=== PATIENT | female | born 1980 | race American Indian/Alaskan Native ===

== ENCOUNTER 2020-07-18 15:50 | Emergency (ER) | payer SELFPAY ==
--- NOTE | 2020-07-18 16:29 | XRay Report ---
RIGHT ANKLE 3 VIEWS INDICATION: Right ankle pain. COMPARISON: None. IMPRESSION: No acute osseous or soft tissue abnormality. Minimal osteoarthritic changes are noted at the ankle joint. A small plantar spur is identified. Signer Name: Juma Camacho Jr, MD Signed: 07/18/2020 4:24 PM Workstation Name: [id number]
--- NOTE | 2020-07-18 18:55 | Emergency Department Report ---
ED Extremity Problem HPI - General Chief complaint: Extremity Injury, Lower Stated complaint: RT ANKLE/CANT WALK Time Seen by Provider: 07/18/20 18:45 Source: patient Mode of arrival: Ambulatory Limitations: No Limitations - History of Present Illness Initial comments: Patient is a 39-year-old female presents emergency room complaints of right ankle and right foot pain that began yesterday. She states that she has previously had this on the left side. 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 She is ambulatory with discomfort. She denies any fall or injury. She denies any numbness or weakness. No allergies to medications. Patient has a history of hypertension. She states that she has been out of her lisinopril hydrochlorothiazide. She also takes metoprolol and amlodipine. She states that her blood pressure is chronically very elevated and she is not seeing a primary care doctor for it. She states that she does go to the ER for medications. She is not have any symptoms related to elevated blood pressure, no headache, no vision changes, no numbness, no weakness, no chest pain, no shortness of breath. - Related Data Previous Rx's Medication Instructions Recorded Last Taken Type Lisinopril/Hydrochlorothiazide 1 tab PO QDAY #30 tab 07/18/20 Unknown Rx [Zestoretic 20-25 mg] Metoprolol [Lopressor TAB] 25 mg PO BID #60 tablet 07/18/20 Unknown Rx Naproxen [EC-Naproxen] 500 mg PO BID PRN #14 tablet. 07/18/20 Unknown Rx amLODIPine 10 mg PO DAILY #30 tab 07/18/20 Unknown Rx Allergies Allergy/AdvReac Type Severity Reaction Status Date / Time No Known Allergies Allergy Unverified 07/18/20 15:59 ED Review of Systems ROS: Stated complaint: RT ANKLE/CANT WALK Other details as noted in HPI Comment: All other systems reviewed and negative ED Past Medical Hx - Past Medical History Previous Medical History?: Yes Hx Hypertension: Yes - Surgical History Past Surgical History?: No - Social History Smoking Status: Current Every Day Smoker Substance Use Type: Marijuana - Medications Home Medications: Home Medications Medication Instructions Recorded Confirmed Last Taken Type Lisinopril/Hydrochlorothiazide 1 tab PO QDAY #30 tab 07/18/20 Unknown Rx [Zestoretic 20-25 mg] Metoprolol [Lopressor TAB] 25 mg PO BID #60 tablet 07/18/20 Unknown Rx Naproxen [EC-Naproxen] 500 mg PO BID PRN #14 tablet. 07/18/20 Unknown Rx amLODIPine 10 mg PO DAILY #30 tab 07/18/20 Unknown Rx ED Physical Exam - General Limitations: No Limitations General appearance: alert, in no apparent distress - Head Head exam: Present: atraumatic, normocephalic - Eye Eye exam: Present: normal appearance - ENT ENT exam: Present: mucous membranes moist - Respiratory Respiratory exam: Absent: respiratory distress, accessory muscle use - Extremities Exam Extremities exam: Present: other (mild ttp to the right dorsal foot, mild ttp to the right medial ankle, FROM of the RLE, no deformity, no joint laxity, neurovascularly intact) - Neurological Exam Neurological exam: Present: alert, oriented X3 - Psychiatric Psychiatric exam: Present: normal affect, normal mood - Skin Skin exam: Present: warm, dry, intact ED Course Vital Signs 07/18/20 07/18/20 07/18/20 15:58 19:44 20:30 Temperature 99.0 F Pulse Rate 87 73 76 Respiratory 18 17 Rate Blood Pressure 212/122 Blood Pressure 207/114 229/130 [Left] O2 Sat by Pulse 98 100 Oximetry 07/18/20 21:06 Temperature Pulse Rate 74 Respiratory 17 Rate Blood Pressure Blood Pressure 164/104 [Left] O2 Sat by Pulse 97 Oximetry ED Medical Decision Making - Lab Data Vital Signs 07/18/20 07/18/20 07/18/20 15:58 19:44 20:30 Temperature 99.0 F Pulse Rate 87 73 76 Respiratory 18 17 Rate Blood Pressure 212/122 Blood Pressure 207/114 229/130 [Left] O2 Sat by Pulse 98 100 Oximetry 07/18/20 21:06 Temperature Pulse Rate 74 Respiratory 17 Rate Blood Pressure Blood Pressure 164/104 [Left] O2 Sat by Pulse 97 Oximetry - Radiology Data Radiology results: report reviewed Ordering Physician: DINO HOLMAN MD Date of Service: 07/18/20 Procedure(s): XR ankle 3+V RT Accession Number(s): [id number] cc: ED MD RIVER Fluoro Time In Minutes: RIGHT ANKLE 3 VIEWS INDICATION: Right ankle pain. COMPARISON: None. IMPRESSION: No acute osseous or soft tissue abnormality. Minimal osteoarthritic changes are noted at the ankle joint. A small plantar spur is identified. Signer Name: Juma Camacho Jr, MD Signed: 07/18/2020 4:24 PM Workstation Name: [id number] Transcribed By: TTR Dictated By: JUMA CAMACHO JR, MD Electronically Authenticated By: JUMA CAMACHO JR, MD Signed Date/Time: 07/18/201623 DD/ 23 TD/TT: - Medical Decision Making Patient is a 39-year-old female presents emergency room complaints of right ankle and right foot pain that began yesterday. She states that she has previously had this on the left side. 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 She is ambulatory with discomfort. She denies any fall or injury. She denies any numbness or weakness. No allergies to medications. Patient has a history of hypertension. She states that she has been out of her lisinopril hydrochlorothiazide. She also takes metoprolol and amlodipine. She states that her blood pressure is chronically very elevated and she is not seeing a primary care doctor for it. She states that she does go to the ER for medications. She is not have any symptoms related to elevated blood pressure, no headache, no vision changes, no numbness, no weakness, no chest pain, no shortness of breath. Vitals with significantly elevated blood pressure, otherwise stable. on exam: mild ttp to the right dorsal foot, mild ttp to the right medial ankle, FROM of the RLE, no deformity, no joint laxity, neurovascularly intact. XR right foot: IMPRESSION: No acute osseous or soft tissue abnormality. Minimal osteoarthritic changes are noted at the ankle joint. A small plantar spur is identified. Patient given clonidine, hydralazine, ibuprofen and symptoms improved and blood pressure improved. Patient has not been entirely compliant with her medication regimen and she does not follow a low-sodium diet. Discussed the importance of primary care follow- up regarding her blood pressure. She is not having any signs or symptoms of hypertensive emergency. She does not want any further work-up for her blood pressure and states that her blood pressure "is always very high." Patient placed in Berto bandage and remained neurovascularly intact. Patient given prescription for naproxen. Patient also given refills of her home medications. Advised patient Please take medication as prescribed. May ice for 15 minutes at a time, rest, elevate the leg. Follow-up with orthopedic doctor. Return to emergency room for any worsening symptoms. Please follow-up with your primary care doctor regarding elevation in blood pressure please take your blood pressure medication as prescribed. Increase your water intake. Eat a low-sodium/low salt diet. Incorporate 30 to 60 minutes of aerobic exercise. Consider weight management. Return to emergency room for new or worsening symptoms. Critical care attestation.: If time is entered above; I have spent that time in minutes in the direct care of this critically ill patient, excluding procedure time. ED Disposition Clinical Impression: Right foot pain, Bone spur, Hypertensive urgency, Non compliance w medication regimen Right ankle pain Qualifiers: Chronicity: acute Qualified Code(s): M25.571 - Pain in right ankle and joints of right foot Disposition: - TO HOME OR SELFCARE Is pt being admited?: No Does the pt Need Aspirin: No Condition: Stable Instructions: Low-Sodium Eating Plan, Hypertension, Adult, Joint Pain, [id number] Additional Instructions: Please take medication as prescribed. May ice for 15 minutes at a time, rest, elevate the leg. Follow-up with orthopedic doctor. Return to emergency room for any worsening symptoms. Please follow-up with your primary care doctor regarding elevation in blood pressure please take your blood pressure medication as prescribed. Increase your water intake. Eat a low-sodium/low salt diet. Incorporate 30 to 60 minutes of aerobic exercise. Consider weight management. Return to emergency room for new or worsening symptoms. Prescriptions: amLODIPine 10 mg PO DAILY #30 tab Naproxen [EC-Naproxen] 500 mg PO BID PRN #14 tablet.dr YOUNGER Reason: pain Metoprolol [Lopressor TAB] 25 mg PO BID #60 tablet Lisinopril/Hydrochlorothiazide [Zestoretic 20-25 mg] 1 tab PO QDAY #30 tab Referrals: GILDA LUNA MD [Primary Care Provider] - 2-3 Days [facility] [Outside] - 2-3 Days ZHAO HUTCHINSON MD [Staff Physician] - 2-3 Days MEHNAZ BENEDICT MD [Staff Physician] - 2-3 Days [facility] [Provider Group] - 2-3 Days Time of Disposition: 21:07 Print Language: DANISH
[2020-07-18] MEDS ORDERED: cloNIDine 0.2 MG TAB PO ONE (19:03)
[2020-07-18] MEDS ORDERED: hydrALAZINE 100 MG TAB PO ONE (20:36)
[2020-07-18] MEDS ORDERED: IBUPROFEN 600 MG TAB PO ONE (20:36)
[2020-07-18 21:06] VITALS: BP 164/104
== END 2020-07-18 21:16 | disposition home or self-care (01) ==
LOC: EDBD → ED 15:50
DX: M25.571 Pain in right ankle and joints of right foot (principal); I16.0 Hypertensive urgency; F17.200 Nicotine dependence, unspecified, uncomplicated; F12.10 Cannabis abuse, uncomplicated